=== PATIENT | female | born 1985 | race Caucasian/White ===

== ENCOUNTER 2016-11-19 21:20 | Emergency (ER) | payer SELFPAY ==
[2016-11-19 21:32] VITALS: O2SAT 98
--- NOTE | 2016-11-19 21:45 | C.PDOC ---
History Of Present Illness Patient presents to the ED complaining of left flank pain that began today. Patient was diagnosed with a UTI and was started on Cipro by a doctor in the clinic 2 days ago. Patient denies nausea, vomiting, fever or chills. Time Seen by Provider: 11/19/16 21:45 Chief Complaint (Nursing): Back Pain History Per: Patient History/Exam Limitations: no limitations Onset/Duration Of Symptoms: Days (2), Worse Since (today) Current Symptoms Are (Timing): Still Present Quality Of Discomfort: "Pain" Severity: Mild Pain Scale Rating Of: 3 Associated Symptoms: None Exacerbating Factor(s): Nothing Recent travel outside of the [place]: No Past Medical History Reviewed: Historical Data, Nursing Documentation, Vital Signs Vital Signs: Last Vital Signs Temp 98 F 11/19/16 21:30 Pulse 65 11/20/16 01:58 Resp 20 11/20/16 01:58 BP 105/48 L 11/20/16 01:58 Pulse Ox 98 11/20/16 01:58 - Medical History PMH: Asthma Family History: States: Unknown Family Hx - Social History Hx Alcohol Use: No Hx Substance Use: No Review Of Systems Constitutional: Negative for: Fever, Chills Gastrointestinal: Negative for: Nausea, Vomiting Musculoskeletal: Positive for: Other (left flank pain) Physical Exam - Physical Exam Appears: Non-toxic, No Acute Distress Skin: Warm, Dry Head: Atraumatic, Normacephalic Eye(s): bilateral: EOMI Oral Mucosa: Moist Neck: Supple Chest: Symmetrical Cardiovascular: Rhythm Regular Respiratory: No Rales, No Rhonchi, No Wheezing Gastrointestinal/Abdominal: Soft, No Tenderness Back: No CVA Tenderness, Other (left flank tenderness) Extremity: Bilateral: Atraumatic Neurological/Psych: Oriented x3 Gait: Steady ED Course And Treatment O2 Sat by Pulse Oximetry: 98 (room air) Pulse Ox Interpretation: Normal Progress Note: Plan: Morphine, Toradol, IV fluids, Urinalysis, Abdomen/Pelvis CT w/o contrast Reevaluation Time: 02:31 Reassessment Condition: Improved Disposition Counseled Patient/Family Regarding: Studies Performed, Diagnosis, Need For Followup, Rx Given - Disposition Referrals: [facility] [Outside] [facility] [Outside] Disposition: HOME/ ROUTINE Disposition Time: 21:45 Condition: FAIR Prescriptions: Naproxen [Naprosyn] 1 tab PO BID PRN #25 tab PRN Reason: Pain Nitrofurantoin Macrocrystals [Macrobid] 1 cap PO BID #14 cap Phenazopyridine HCl [Pyridium] 200 mg PO TID #6 tablet Instructions: Urinary Tract Infection in Women (DC) - Clinical Impression Clinical Impression: UTI (urinary tract infection) - Scribe Statement The provider has reviewed the documentation as recorded by the Nusratibe Kylie Cadena Provider Attestation: All medical record entries made by the Nusratibe were at my direction and personally dictated by me. I have reviewed the chart and agree that the record accurately reflects my personal performance of the history, physical exam, medical decision making, and the department course for this patient. I have also personally directed, reviewed, and agree with the discharge instructions and disposition.
[2016-11-19] MEDS ORDERED: Morphine 4 MG/ML VIAL ONE (22:14)
[2016-11-19 22:16] LABS: RBC URINE 8 /hpf (0-3); URINE BACTERIA MOD (<OCC); URINE BILIRUBIN NEGATIVE (NEGATIVE); URINE BLOOD 1+ (NEGATIVE); URINE COLOR Yellow (YELLOW); URINE GLUCOSE (UA) NORMAL (Normal); URINE KETONE NEGATIVE (NEGATIVE); URINE LEUKOCYTE ESTERASE 1+ Leu/uL (Negative); URINE PROTEIN 1+ mg/dL (NEGATIVE); URINE UROBILINOGEN NORMAL mg/dL (0.2-1.0); WBC URINE 43 /hpf (0-5)
[2016-11-19] MEDS ORDERED: Morphine 4 MG/ML VIAL IV STA (22:17)
[2016-11-19] MEDS ORDERED: Sodium Chloride 0.9% 1,000 ML IV ONE (22:21)
[2016-11-20] MEDS ORDERED: Piperacillin/Tazobact 3.375 gm 100 ML IVPB STA (01:34)
[2016-11-20 01:58] VITALS: RESP 20
[2016-11-20 03:03] VITALS: BP 109/49; PULSE 76; TEMP 97.7
--- NOTE | 2016-11-20 09:44 | CT ---
PROCEDURE: CT Abdomen and Pelvis without intravenous contrast HISTORY: left flank pain COMPARISON: None. TECHNIQUE: Multiple contiguous axial images were performed through the abdomen and pelvis without intravenous contrast. Subsequently, sagittal and coronal reformatted images were obtained. Radiation dose: Total exam DLP = 1208 mGy-cm. This CT exam was performed using one or more of the following dose reduction techniques: Automated exposure control, adjustment of the mA and/or kV according to patient size, and/or use of iterative reconstruction technique. FINDINGS: LOWER THORAX: Mild atelectasis at the right lung base. LIVER: Unremarkable. No gross lesion or ductal dilatation. GALLBLADDER AND BILE DUCTS: Status post cholecystectomy. Biliary dilatation presumably secondary to prior cholecystectomy. PANCREAS: Unremarkable. No gross lesion or ductal dilatation. SPLEEN: Unremarkable. ADRENALS: Unremarkable. No mass. KIDNEYS AND URETERS: Unremarkable. No hydronephrosis. No solid mass. VASCULATURE: Unremarkable. No aortic aneurysm. BOWEL: Unremarkable. No obstruction. No gross mural thickening. APPENDIX: No findings to suggest acute appendicitis. PERITONEUM: Unremarkable. No free fluid. No free air. LYMPH NODES: Unremarkable. No enlarged lymph nodes. BLADDER: Unremarkable. REPRODUCTIVE: Unremarkable. BONES: Prominent bone island in the left acetabulum. OTHER FINDINGS: None. IMPRESSION: Negative acute. These findings were preliminarily reported at 1:20 a.m. on 11/20/[address] Olivier Goins from [employer].
== END 2016-11-20 03:02 | disposition home or self-care (01) ==
LOC: C.ER 21:20
DX: N39.0 Urinary tract infection, site not specified (principal)
CPT/HCPCS: 74176; 81001; 84703; 96361; 96365; 96375; 96376; 99285; J1885; J2270; J2543; J7040